=== PATIENT | female | born 1985 | race Caucasian/White ===

== ENCOUNTER 2022-04-29 20:01 | Emergency (ER) | payer SELFPAY ==
[2022-04-29 20:02] VITALS: BP 131/79; PULSE 68; RESP 16; TEMP 36.6; O2SAT 100; BMI 26.4
[2022-04-29 21:20] LABS: Mucous, Urine 0 SEEN /hpf (<or=2+); Red Blood Cells-Urine 0 SEEN /hpf (0-5); Squamous Epithelial Cells - UA 0 SEEN /hpf (5-10); White Blood Cells 0 SEEN /hpf (0-5)
[2022-04-29 21:22] LABS: Color, Urine Straw (Yellow); Glucose, Dipstick Normal (Normal); Ketone-Dipstick Negative (Negative); Leukocyte Esterase-Dipstick Negative /ul (Negative); Nitrite-Dipstick Negative (Negative); Occult Blood-Urine Negative /ul (Negative); Protein-Dipstick Negative (Negative); Urine Bilirubin Dipstick Negative (Negative); Urine Clarity Clear (Clear); Urine Urobilinogen Normal (Normal)
[2022-04-29 21:53] LABS: Bacteria RARE /hpf (None Seen)
[2022-04-29] MEDS: Famotidine 20 MG Tablet PO (22:00)
[2022-04-29] MEDS: Ondansetron ODT 4 MG Tablet PO (22:00)
--- NOTE | 2022-04-29 22:21 | EDS_ITS ---
HPI HPI - GI History of Present Illness Chief Complaint: Abd Pain Narrative Narrative: 37-year-old female presenting with epigastric burning. She states is been going on for 3 days. She admits to drinking 2 to 4 L of pop a day. She smokes to anywhere from 1 to 3 packs a day of cigarettes. She also admits to a eating spaghetti sauce yesterday. This did exacerbate the symptoms. She used to be on a PPI but is no longer taking this. She has mild nausea associated with her symptoms. Patient does not drink alcohol. No history of pancreatitis. PFSH PFSH Home Medications bupropion HCl 100 mg tablet 150 mg PO BID 04/29/22 [History Last Taken Unknown] ondansetron 4 mg disintegrating tablet 4 mg PO Q8H PRN nausea and vomiting #14 tabs 04/29/22 [Rx Last Taken Unknown] pantoprazole 40 mg tablet,delayed release (Protonix) 40 mg PO DAILY #30 tabs 04/29/22 [Rx Last Taken Unknown] sertraline 25 mg tablet (Zoloft) 25 mg PO DAILY 04/29/22 [History Last Taken Unknown] Allergy/AdvReac Type Severity Reaction Status Date / Time amoxicillin Allergy Other Verified 04/29/22 20:05 Sulfa (Sulfonamide AdvReac Upset Verified 04/29/22 20:05 Antibiotics) Stomach Social History Smoking Status: Current every day smoker tobacco type: cigarettes ROS ROS ED Constitutional Constitutional ED: Denies chills or fever(s) ENT ENT ED: Denies rhinorrhea or sore throat Cardiovascular Cardiovascular: Denies chest pain or palpitations Respiratory/Chest Respiratory/Chest: Denies cough or dyspnea Gastrointestinal Gastrointestinal: Reports abdominal pain, nausea and other Details: Dyspepsia ; Denies vomiting Genitourinary Genitourinary ED: Denies dysuria or hematuria Musculoskeletal Musculoskeletal: Denies arthralgias or back pain Integumentary Denies abscess or Abrasions Neurologic Neurologic: Denies headache(s) or paresthesias Psychiatric Psychiatric: Denies anxiety or depression Endocrine Endocrinology: Denies polydipsia or polyphagia EXAM Physical Exam Const Vital Signs: 04/29/22 20:02 Temperature 98 F Temperature Source Temporal Pulse Rate 68 Respiratory Rate 16 Blood Pressure 131/79 H Blood Pressure Mean 96 Pulse Ox 100 Oxygen Delivery Method Room Air Positive well nourished General Appearance ED: NAD; Negative for pallor HEENT Reports moist mucous membranes normocephalic Eyes PERRL and EOMs intact bilaterally Resp normal respiratory effort and clear to auscultation bilaterally Cardio regular rate and regular rhythm GI non-tender, non-distended and no masses Auscultation: normoactive bowel sounds Neuro CN's II-XII intact bilaterally, moves all extremities and no sensory deficits noted Sensorium / Orientation: alert Skin General Skin Exam: Negative for jaundice or pallor MDM MDM MDM Narrative Medical decision making narrative: Patient presenting with dyspepsia and epigastric burning. She has multiple exacerbating factors. She is not taking her PPI either. Her physical exam is benign. She has no pain to palpation. Sounds that she could benefit from a PPI. I do we will give her some Zofran to help with nausea that is periodic. She is given Carafate for home as well. I offered her a GI cocktail in the ER however she stated this does not taste good and she does not want it. She was given Zofran and Pepcid here. She is counseled on modifying her diet at length. She acknowledged understanding. Impression: 1 GERD Lab Data Attestation: I reviewed the patient's lab results. Labs: Laboratory Results - last 24 hr 04/29/22 21:12 Urine Color Straw Urine Clarity Clear Urine pH 6.0 Ur Specific [place] 1.010 Urine Protein Negative Urine Glucose (UA) Normal Urine Ketones Negative Urine Occult Blood Negative Urine Nitrite Negative Urine Bilirubin Negative Urine Urobilinogen Normal Ur Leukocyte Esterase Negative Urine RBC 0 SEEN Urine WBC 0 SEEN Ur Squamous Epith Cells 0 SEEN Urine Bacteria RARE Urine Mucus 0 SEEN Discharge Plan Triage Chief Complaint: Abd Pain ED Provider: Juanito Persaud Dx/Rx/DC Orders Instructions: ED GERD (Adult) Prescriptions: New pantoprazole [Protonix] 40 mg tablet,delayed release (DR/EC) 40 mg PO DAILY Qty: 30 0RF ondansetron 4 mg tablet,disintegrating 4 mg PO Q8H PRN (Reason: nausea and vomiting) Qty: 14 0RF No Action bupropion HCl [Wellbutrin] 100 mg Tablet 150 mg PO BID sertraline [Zoloft] 25 mg Tablet 25 mg PO DAILY Primary Care Provider: Care Physician,No Primary Referrals: Friend,DO Michael [STAFF PHYSICIAN] - 3-5 Days NOT,DEFINED [NON-STAFF] - Disposition Disposition: Home, Self Care Discharge Date/Time: 04/29/22 22:09
== END 2022-04-29 22:09 | disposition home or self-care (01) ==
LOC: ED 22:04
PROVIDERS: Emergency Provider Student in an Organized Health Care Education/Training Program; Visit Provider Student in an Organized Health Care Education/Training Program
DX: K21.9 Gastro-esophageal reflux disease without esophagitis (principal); F17.210 Nicotine dependence, cigarettes, uncomplicated
CPT/HCPCS: 81001; 99283